=== PATIENT | male | born 1955 ===

== ENCOUNTER 2016-12-16 17:23 | Emergency (ER) | payer OTHER ==
[2016-12-17] MEDS ORDERED: Rivaroxaban TAB(*) 15 MG PO ONE (00:20)
[2016-12-17 00:58] VITALS: BP 123/74
--- NOTE | 2016-12-17 00:58 | ED ---
Lower Extremity - HPI Summary HPI Summary: Patient arrives from with CC of left leg swelling below the knee x 2 days. He is healthy and states he walks to work daily. He denies smoking, travel, recent bedrest, surgery or known malignancy. He states he had the flu last week and when his symptoms improved, he noticed his leg began to hurt behind the right knee and extended down into the calf. He notes some redness, swelling , warmth as well. Denies other illness or symptoms. Denies chest pain, pressure or SOB. He is otherwise healthy and takes no medications. He states he spoke with his doctor this morning who stated he should go to to r/o a blood clot. However on arrival, US was not there and was subsequently transferred here to the ED. He denies blood thinners currently or previously and has never had anything like this happen. He is able to bear weight, and pain is intermittent. Denies pain in the groin and there are no palpable masses in the abdomen. He has not tried to take anything for the pain or the swelling. - History of Current Complaint Chief Complaint: EDExtremityLstar Stated Complaint: [facility] Time Seen by Provider: 12/16/16 21:48 Hx Obtained From: Patient Onset of Pain: Days Onset/Duration: Days Severity Initially: Moderate Severity Currently: Moderate Pain Intensity: 3 Pain Scale Used: 0-10 Numeric Timing: Constant Location: Is Discrete @ - left posterior knee extending to the calf Character Of Pain: Dull, Aching Associated Signs And Symptoms: Positive: Swelling, Redness Aggravating Factor(s): Standing, Ambulation Alleviating Factor(s): Rest - Risk Factors Gout Risk Factors: Age Over 40, Male DVT Risk Factors: Recent Period Of Bedrest - recent flu symptoms Septic Arthritis Risk Factor: Extremes of Age - Allergies/Home Medications Allergies/Adverse Reactions: Allergies Allergy/AdvReac Type Severity Reaction Status Date / Time No Known Allergies Allergy Verified 12/16/16 16:05 PMH/Surg Hx/FS Hx/Imm Hx Previously Healthy: Yes Sensory History: Reports: Hx Cataracts - LEFT EYE, Hx Contacts or Glasses - GLASSES Denies: Hx Hearing Aid Opthamlomology History: Reports: Hx Cataracts - LEFT EYE, Hx Contacts or Glasses - GLASSES - Surgical History Surgery Procedure, Year, and Place: 1962 APPENDECTOMY, [place],. 1959, ADENOIDECTOMY , [place]. 1959' ORAL SURGERY, [place]. 2011 RIGHT EYE CATARACT EXTRACTION WITH IOL IMPLANT, [facility] Hx Anesthesia Reactions: Yes - TIRED FOR ABOUT 24 HOURS - Immunization History Hx Pertussis Vaccination: Yes Immunizations Up to Date: Yes Infectious Disease History: No Infectious Disease History: Denies: Traveled Outside the [place] in Last 30 Days - Family History Family History: MOM HAD ARTERIAL THROMBUS - Social History Occupation: Employed Full-time Lives: With Family Alcohol Use: Occasionally Hx Substance Use: No Substance Use Type: Reports: None Hx Tobacco Use: No Smoking Status (MU): Never Smoked Tobacco Do You Chew or Dip Tobacco: No Have You Chewed or Dipped Tobacco in the LAST YEAR: No Have You Smoked in the Last Year: No Review of Systems Constitutional: Negative Eyes: Negative Cardiovascular: Negative Respiratory: Negative Positive: no symptoms reported, see HPI Positive: Myalgia - left posterior knee pain extending to the left calf Positive: Other - confluent erythematous patches warm to touch without pain on palpation. edema +2 throughout left lower extremity Neurological: Negative Psychological: Normal All Other Systems Reviewed And Are Negative: Yes Physical Exam Triage Information Reviewed: Yes Vital Signs On Initial Exam: Initial Vitals Temp Pulse Resp BP Pulse Ox 97.7 F 95 18 162/87 99 12/16/16 17:28 12/16/16 17:28 12/16/16 17:28 12/16/16 17:28 12/16/16 17:28 Vital Signs Reviewed: Yes Appearance: Positive: Well-Appearing, No Pain Distress, Well-Nourished Skin: Positive: Warm, Skin Color Reflects Adequate Perfusion, Erythema @ - left lower extremity - confluent patches convalescing around ankle, Other - edema +2 - left lower extremity Head/Face: Positive: Normal Head/Face Inspection Eyes: Positive: ROB, Conjunctiva Clear ENT: Positive: Normal ENT inspection Neck: Positive: Supple, No Lymphadenopathy Respiratory/Lung Sounds: Positive: Clear to Auscultation, Breath Sounds Present Cardiovascular: Positive: Normal, RRR, Pulses are Symmetrical in both Upper and Lower Extremities - pulses intact +2 bilaterally, Leg Edema Left Musculoskeletal: Positive: Normal, Strength/ROM Intact Neurological: Positive: Normal, Sensory/Motor Intact, Alert, Oriented to Person Place, Time, Speech Normal Psychiatric: Positive: Normal AVPU Assessment: Alert Diagnostics - Vital Signs Vital Signs Temp Pulse Resp BP Pulse Ox 12/16/16 22:44 98.1 F 85 16 148/86 98 12/16/16 20:10 98.1 F 86 16 165/85 100 12/16/16 17:28 97.7 F 95 18 162/87 99 - Laboratory Lab Statement: Any lab studies that have been ordered have been reviewed, and results considered in the medical decision making process. Lower Extremity Course/Dx - Course Course Of Treatment: US shows occlusive noncompressible thrombus extending from the mid femoral vein through the popliteal and into the tibial and peroneal veins. Patient made aware. Patient is without SOB, chest pressure, chest pain. Patient is otherwise healthy and takes no medications. DVT is unprovoked. Patient placed on xarelto 15mg BID x 21 days. Follow up with PCP within 21 days was stressed heavily to patient and he agrees will follow up at that time. Patient will return if any new or worsening symptoms develop. - Diagnoses Differential Diagnosis/HQI/PQRI: Positive: DVT, Phlebitis, Septic Arthritis, Sprain Provider Diagnoses: DVT (deep venous thrombosis) Discharge - Discharge Plan Condition: Stable Disposition: HOME Prescriptions: Rivaroxaban TAB(*) [Xarelto 15 mg(*)] 15 mg PO BID #42 tab MDD 2 Patient Education Materials: Deep Venous Thrombosis (ED), Leg Edema (ED) Referrals: Ham Lima MD [Primary Care Provider] - Additional Instructions: Take 1 tab twice daily for 21 days of xarelto. Follow up with your PCP within 3 weeks. If your symptoms become worse or you develop difficulty breathing, come back to ED. If you have questions about your medications, call your PCP.
--- NOTE | 2016-12-17 08:31 | RAD ---
Indication: Left leg edema. Duplex Doppler sonography of the deep venous system of the left lower extremity deep venous system was performed. Bilaterally the common femoral veins appear patent and compressible. Left proximal greater saphenous vein, proximal deep femoral vein, posterior tibial veins and peroneal veins appear patent and compressible. There is echogenic material in the mid femoral vein extending to the distal femoral vein in the proximal popliteal vein. These vessels are noncompressible. The posterior tibial vein and peroneal veins are also noncompressible. Findings are consistent with deep venous thrombosis extending from the mid femoral vein to the calf veins. IMPRESSION: DEEP VENOUS THROMBOSIS EXTENDING FROM THE LEFT MID FEMORAL VEIN TO THE POPLITEAL VEIN, POSTERIOR TIBIAL VEINS AND PERONEAL VEINS.
== END 2016-12-17 00:57 | disposition home or self-care (01) ==
LOC: ED 17:23
DX: I82.4Z2 Acute embolism and thrombosis of unspecified deep veins of left distal lower extremity (principal)
CPT/HCPCS: 99282